=== PATIENT | male | born 1965 | race Caucasian/White ===

== ENCOUNTER → 2021-05-29 | Outpatient (CLI) | payer MEDICARE, MEDICAID ==
--- NOTE | 2021-05-29 10:55 | Diagnostic Imaging Report ---
INDICATION: Back pain. 4 views of the thoracic spine were obtained. FINDINGS: There is approximately 60 degrees of dextroscoliosis in the midthoracic spine with compensatory curves evident about and below this. No spondylolisthesis is evident. There is generalized demineralization consistent with osteopenia/osteoporosis. No acute abnormality is evident. IMPRESSION: Marked scoliosis. No acute abnormality is seen. Dictated by: Dictated on workstation # [id number]
== END ==
LOC: RAD FS 10:15
PROVIDERS: ATTEND Family Medicine
DX: M41.84 Other forms of scoliosis, thoracic region (principal)
CPT/HCPCS: 72072